=== PATIENT | female | born 1965 | race American Indian/Alaskan Native ===

== ENCOUNTER 2016-10-10 11:45 | Inpatient (IN) | payer MEDICAID, MEDICARE ==
[2016-10-10 11:46] VITALS: BMI 37.3
[2016-10-10] MEDS ORDERED: Oxycodone/Acetaminophen 5/325 mg Tab PO STA (12:19)
--- NOTE | 2016-10-10 12:25 | ED PDOC ---
Arrival/HPI - General Historian: Patient - History of Present Illness Time/Duration: > month Symptom Onset: Gradual Symptom Course: Worsening Quality: Aching Severity Level: 5 - General Chief Complaint: Lower Extremity Problem/Injury Time Seen by Provider: 10/10/16 12:12 - History of Present Illness Narrative History of Present Illness (Text): 10/10/16 12:21 51-year-old female with a history of hypertension and diabetes presents today with a one-month history of left leg swelling and pain. Patient states the swelling is unchanged but the pain has worsened. She is complaining of worsening pain in the left foot as well as the left ankle. She denies any recent trauma or injury. Pt states that back in december she stepped on a rock incorrectly and twisted the ankle. Pt states she actually has has swelling since that time but never followed up for continued pain because of insurance issues. Patient states she's been taking Motrin for pain at home without improvement. no fevers or chills. Patient denies chest pain or shortness of breath. Denies abdominal pain. The patient states she had her left great toenail fall off recently. Patient states she had a thickened discolored nail that fell off on its own without trauma. Patient states she did not take any of her medications today including her blood pressure medication. (Sonia Pacheco) Past Medical History - Provider Review Nursing Documentation Reviewed: Yes - Travel History Have you recently traveled outside [place] w/in the past 3 mons?: No - Infectious Disease Hx of Infectious Diseases: None - Tetanus Immunization Tetanus Immunization: Unknown - Cardiac Hx Cardiac Disorders: Yes Hx Hypertension: Yes - Musculoskeletal/Rheumatological Hx Arthritis: Yes - Psychiatric Hx Depression: No Hx Emotional Abuse: No Hx Physical Abuse: No Hx Substance Use: No - Past Surgical History Past Surgical History: No Previous - Suicidal Assessment Feels Threatened In Home Enviroment: No Family/Social History - Physician Review Nursing Documentation Reviewed: Yes Family/Social History: Unknown Family HX Smoking Status: Never Smoked Hx Alcohol Use: No Hx Substance Use: No Hx Substance Use Treatment: No Allergies/Home Meds Allergies/Adverse Reactions: Allergies aspirin [From Seth Aspirin] Allergy (Verified 10/10/16 11:50) VOMITING calcium carbonate [From Bufferin] Allergy (Verified 10/10/16 11:50) VOMITING magnesium [From Bufferin] Allergy (Verified 10/10/16 11:50) VOMITING naproxen [From Aleve] Allergy (Verified 10/10/16 11:50) VOMITING Home Medications: Home Meds Medication Instructions Recorded Confirmed Glimepiride [Amaryl] 4 mg PO BID 10/10/16 10/10/16 Lisinopril/Hydrochlorothiazide 1 each PO DAILY 10/10/16 10/10/16 [Lisinopril-Hctz 20-12.5 mg Tab] Review of Systems - Review of Systems Constitutional: absent: Fatigue, Fevers Respiratory: absent: SOB, Cough Cardiovascular: absent: Chest Pain, Palpitations Gastrointestinal: absent: Abdominal Pain, Diarrhea, Nausea, Vomiting Musculoskeletal: Arthralgias, Joint Swelling Skin: absent: Rash, Pruritis Neurological: absent: Headache, Dizziness Psychiatric: absent: Anxiety, Depression Physical Exam Vital Signs Reviewed: Yes Temperature: Afebrile Blood Pressure: Hypertensive Pulse: Tachycardic Respiratory Rate: Normal Appearance: Positive for: Well-Appearing, Non-Toxic, Comfortable Pain Distress: None Mental Status: Positive for: Alert and Oriented X 3 - Systems Exam Head: Present: Atraumatic Mouth: Present: Moist Mucous Membranes Respiratory/Chest: Present: Clear to Auscultation Cardiovascular: Present: Regular Rate and Rhythm Upper Extremity: Present: Normal Inspection Lower Extremity: Present: Edema (+ left lower extremity edema from the knee to the ankle. spares the foot; sensation and distal pulses intact. ), CALF TENDERNESS, NORMAL PULSES, Tenderness (+ ttp over plantar aspect of foot and ankle bilaterally. ), Swelling (left calf and ankle), Deformity (charcot foot deformity), Neurovascularly Intact, Capillary Refill < 2 s, Other (left great toe nail missing without erythema; edema, or tenderness. ). No: Normal Inspection, Normal ROM, Erythema Neurological: Present: GCS=15, Speech Normal, Motor Func Grossly Intact, Normal Sensory Function Skin: Present: Warm, Dry Psychiatric: Present: Alert, Oriented x 3 Vital Signs Temp Pulse Resp BP Pulse Ox 10/10/16 20:40 98.5 F 95 H 16 169/70 H 98 10/10/16 17:10 91 H 178/103 H 10/10/16 17:04 98.4 F 91 H 16 178/103 H 97 10/10/16 14:54 90 16 152/98 H 100 08/05/17 12:15 106 H 16 207/166 H 98 10/10/16 11:52 98.1 F 106 H 16 212/121 H 97 Medical Decision Making ED Course and Treatment: 10/10/16 12:36 I was available for consultation during PA evaluation. The chart was reviewed by me, and I agree with disposition. The documented history was done by the physician exchange mechanic. The documented physical exam was done by the physician exchange mechanic. The documented procedures were done by the physician exchange mechanic. (Ace Estrada) 10/10/16 12:28 51yr old diabetic female with hx of htn and left leg swelling since december which as been worsening over the past month. Pt unable to ambulate due to severe pain. pt hypertensive; did not take her bp medications today; will give pts medication ; lisinopril/htcz; 20/12.5 percocet given for pain fingerstick; 346 cbc wnl cmp: glucose 249 NS iv bolus given. xray left foot: ADDENDUM: Addendum: There is 10 mm of lateral subluxation of the 2nd metatarsal relative to the base of the 1st metatarsal. This is consistent with a Lisfranc type injury. This injury can be seen in association with the changes of a Charcot foot. [ Addendum Report Added by Dr. Snider, Lio ROD at 10/10/2016 15:19:47 BONES: Multiple fracture dislocations are seen at the base of the metatarsals consistent with a severe Charcot foot. There is also flattening of the plantar arch I spoke with Sonia smiley to confirm a history of diabetic neuropathy. JOINTS: Normal. SOFT TISSUES: Normal. OTHER FINDINGS: None. IMPRESSION: Charcot foot xray left ankle: no ankle fracture Venous duplex left leg; no dvt there is a question of whether this is an old lisfranc fracture or charcot foot from her diabetes. Although patient without diabetic neuropathy at this time and Due to the remote hx of possible trauma will consult podiatry. posterior short leg splint applied. case discussed with dr. key who reviewed images. ? old lisfranc vs charot. With prior hx of trauma more likely lisfranc which would need surgery. He contacting orthopedist. case discussed with dr. molina; pt to be placed in splint. case discussed with dr. barrera; she would like MRI of foot. no MRI available now. pt with difficulty ambulating with splint. continued elevated htn and glucose; will admit to med/surg for further evaluation and treatment of uncontrolled HTN/hyperglycemia and further evaluation of foot deformity. impression; charot foot vs lisfranc fx , old admit to med/surg for podiatry and orthopedic consult. (Sonia Pacheco) - Lab Interpretations Lab Results: 10/10/16 12:50 10/10/16 14:50 Lab Results 10/10/16 17:11: POC Glucose (mg/dL) 230 H 10/10/16 14:50: Triglycerides 93, Cholesterol 226 H, LDL Cholesterol Direct 168 H, HDL Cholesterol 39 10/10/16 14:50: Sodium 136, Potassium 4.1, Chloride 99, Carbon Dioxide 28, Anion Gap 13, BUN 11, Creatinine 0.6, Est GFR ( Amer) > 60, Est GFR (Non- Af Amer) > 60, Random Glucose 279 H, Calcium 9.5, Total Bilirubin 0.6, AST 25, ALT 27, Alkaline Phosphatase 108, Total Protein 7.4, Albumin 3.7, Globulin 3.7, Albumin/Globulin Ratio 1.0 L 10/10/16 12:50: WBC 5.0, RBC 4.81, Hgb 11.5 L, Hct 35.3 L, MCV 73.4 L, MCH 23.9 L, MCHC 32.6, RDW 14.8 H, Plt Count 352, MPV 11.8 H, Gran % 62.3, Lymph % (Auto ) 29.0, [place] % (Auto) 7.1 H, Eos % (Auto) 1.4 L, Baso % (Auto) 0.2, Gran # 3.09 , Lymph # 1.4, [place] # 0.4, Eos # 0.1, Baso # 0.01 10/10/16 12:11: POC Glucose (mg/dL) 346 H - RAD Interpretation Radiology Orders: 10/10/16 12:19 ANKLE LEFT 3 VIEWS ROUTINE [RAD] Stat FOOT LEFT 3 VIEWS ROUTINE [RAD] Stat DUPLEX LOWER EXTRM VEIN LEFT [US] Stat 10/10/16 16:39 ANKLE W/O CONTRAST RIGHT [MRI] Stat - Medication Orders Current Medication Orders: Amlodipine Besylate (Norvasc) 5 mg PO DAILY [facility] Last Admin: 10/11/16 06:19 Dose: 5 mg Glimepiride (Amaryl) 4 mg PO BID [facility] Hydrochlorothiazide (Microzide) 12.5 mg PO DAILY [facility] Insulin Human Lispro (Humalog Med) 0 units SC ACHS [facility] PRN Reason: Protocol Last Admin: 10/11/16 08:35 Dose: 5 units Lisinopril (Zestril) 20 mg PO DAILY [facility] Last Admin: 10/11/16 06:18 Dose: 20 mg Discontinued Medications Acetaminophen (Tylenol 325mg Tab) 650 mg PO ONCE STA Stop: 10/11/16 05:53 Last Admin: 10/11/16 06:16 Dose: 650 mg Hydrochlorothiazide (Microzide) 12.5 mg PO STAT STA Stop: 10/10/16 12:20 Last Admin: 10/10/16 12:37 Dose: 12.5 mg Hydrochlorothiazide (Microzide) 12.5 mg PO STAT STA Stop: 10/10/16 16:45 Last Admin: 10/10/16 17:10 Dose: 12.5 mg Sodium Chloride (Sodium Chloride 0.9%) 1,000 mls @ 999 mls/hr IV .Q1H1M STA Stop: 10/10/16 13:26 Last Admin: 10/10/16 13:50 Dose: 999 mls/hr Lisinopril (Zestril) 20 mg PO STAT STA Stop: 10/10/16 12:19 Last Admin: 10/10/16 12:36 Dose: 20 mg Lisinopril (Zestril) 20 mg PO STAT STA Stop: 10/10/16 16:44 Last Admin: 10/10/16 17:10 Dose: 20 mg Oxycodone/Acetaminophen (Percocet 5/325 Mg Tab) 1 tab PO STAT STA Stop: 10/10/16 12:20 Last Admin: 10/10/16 12:37 Dose: 1 tab Re-Assess: SUSAN Pain Assessment Document 10/10/16 13:37 GMI (Rec: 10/10/16 13:52 GMI [id number]) Pain Reassessment Is this a pain reassessment? Yes Sleep Is patient sleeping during reassessment? No Presence of Pain Presence of Pain Yes Pain Scale Used Pain Scale Used Numeric Location Left, Right or Bilateral Left Description Description Intermittent Intensity of Pain at present 5 Procedures - Splinting Location: left ankle/foot Hand-Made Type: fiberglass Splint: posterior short leg splint Pre-Proc Neuro Vasc Exam: normal Post-Proc Neuro Vasc Exam: normal Disposition/Present on Arrival - Present on Arrival Any Indicators Present on Arrival: No History of DVT/PE: No History of Uncontrolled Diabetes: No Urinary Catheter: No History of Decub. Ulcer: No History Surgical Site Infection Following: None - Disposition Have Diagnosis and Disposition been Completed?: Yes Disposition Time: 17:24 Patient Plan: Admission - Disposition Diagnosis: Lisfranc fracture, Leg swelling, Hypertension, Hyperglycemia Disposition: HOSPITALIZED Patient Problems: Current Active Problems Problem Status Onset Hyperglycemia Acute Hypertension Acute Leg swelling Acute Lisfranc fracture Acute Condition: FAIR
[2016-10-10] MEDS ORDERED: Sodium Chloride 0.9% 1,000 ML IV STA (12:26)
[2016-10-10 13:18] LABS: BASO # 0.01 K/mm3 (0.0-2.0); BASO % 0.2 % (0.0-3.0); EOS # 0.1 (0.0-0.7); EOS % 1.4 % (1.5-5.0); GRAN # 3.09 (1.4-6.5); GRAN % 62.3 % (50.0-68.0); HEMOGLOBIN 11.5 gm/dL (12.0-16.0); LYMPH # 1.4 (1.2-3.4); MEAN CELL VOLUME 73.4 fL (80.0-105.0); MEAN CORPUSCULAR HEMOGLOBIN 23.9 pg (25.0-35.0); MEAN CORPUSCULAR HGB CONC 32.6 g/dl (31.0-37.0); MEAN PLATELET VOLUME 11.8 fl (7.0-11.0); MONO # 0.4 (0.1-0.6); MONO % 7.1 % (1.0-6.0); PLATELET COUNT 352 10^3/uL (120.0-450.0); RBC 4.81 10^6/uL (3.5-6.1); RED CELL DISTRIBUTION WIDTH 14.8 % (11.5-14.5)
--- NOTE | 2016-10-10 13:44 | US ---
PROCEDURE: Left lower extremity venous US HISTORY: Leg pain and swelling. Evaluate for DVT. PHYSICIAN(S): Alcides Martinez MD. TECHNIQUE: Duplex sonography and color-flow Doppler with graded compression were used to evaluate the deep venous system of the left lower extremity. The exam is limited by edema FINDINGS: The visualized deep venous system of the left lower extremity is sonographically normal and compressible. Normal wave forms and augmentation are seen. There is no sonographic evidence for deep venous thrombosis in the visualized segments of the left lower extremity. IMPRESSION: 1. No sonographic evidence for deep venous thrombosis in the visualized segments of the left lower extremity.
--- NOTE | 2016-10-10 15:09 | RAD ---
PROCEDURE: Left Foot Radiographs. HISTORY: foot pain COMPARISON: None. FINDINGS: BONES: Multiple fracture dislocations are seen at the base of the metatarsals consistent with a severe Charcot foot. There is also flattening of the plantar arch I spoke with Sonia smiley to confirm a history of diabetic neuropathy. JOINTS: Normal. SOFT TISSUES: Normal. OTHER FINDINGS: None. IMPRESSION: Charcot foot
[2016-10-10 15:10] LABS: ALBUMIN 3.7 g/dL (3.0-4.8); ALT/SGPT 27 U/L (7-56); AST/SGOT 25 U/L (15-39); BLOOD UREA NITROGEN 11 mg/dL (7-21); CALCIUM 9.5 mg/dL (8.4-10.5); GFR AFRICAN-AMERICAN > 60; GFR NON-AFRICAN AMERICAN > 60
--- NOTE | 2016-10-10 15:20 | RAD ---
PROCEDURE: Left Ankle Radiographs. HISTORY: ankle pain COMPARISON: None FINDINGS: BONES: There is a severe Charcot foot. There is medial displacement of the 1st cuneiform which is also visible on the ankle films. JOINTS: Normal. No osteoarthritis. Ankle mortise maintained. Talar dome intact SOFT TISSUES: There is severe soft tissue swelling. OTHER FINDINGS: None. IMPRESSION: Severe soft tissue swelling. No evidence of ankle fracture.
[2016-10-10 17:42] LABS: HDL CHOLESTEROL 39 mg/dL (29-60)
[2016-10-10 17:53] LABS: LDL CHOLESTEROL 168 mg/dL (0-129)
[2016-10-10] MEDS: Insulin Lispro (humaLOG) MEDIUM Coverage SC SCH (22:00)
--- NOTE | 2016-10-10 23:48 | HP ---
HISTORY OF PRESENT ILLNESS: The patient is a 51-year-old who came to the emergency room because of increasing right ankle pain and swelling. The stated she noticed her left leg swelling that has been increasingly getting worse and got severe today, so she came to the emergency room for further evaluation, also complain of pain and swelling in the left foot. Denies any recent injury. No recent trauma. The patient does admit that back in January 2016, she stepped wrong on the rock and strained her ligament and at that point, she was seen in the office with complaint of leg swelling, so leg Doppler was done, it was negative for DVT. The patient stated after that her swelling started to improve and she will get intermittent pain, but not to the point that she had to seek medical attention. The patient was last seen in office in January 2016. PAST MEDICAL HISTORY: She has significant past medical history of; 1. Hypertension. 2. Non-insulin dependent diabetes. 3. Morbid obesity. The patient is not very compliant. She has not been in office for last 9 months. ALLERGIES: SHE IS ALLERGIC TO ASPIRIN, CALCIUM CARBONATE, MAGNESIUM AND NAPROSYN. MEDICATION AT HOME: She is supposed to take lisinopril 20/12.5 daily and glimepiride 4 mg twice a day, but she takes that medicine intermittently. SOCIAL HISTORY: Denies smoking, drinking or alcohol use. REVIEW OF SYSTEMS: Significant for left ankle and foot swelling. PHYSICAL EXAMINATION GENERAL: She is awake and alert, communicative. VITAL SIGNS: She is afebrile. Pulse 106. Upon arrival, her blood pressure was 212/121, respirations 16. She was given lisinopril and later her blood pressure was 152/98. LUNGS: Bilateral good air flow. No rhonchi or crackle. HEART: S1 and S2 audible. ABDOMEN: Soft, obese, nontender. No rebound, no guarding. NEUROLOGIC: She is awake and alert, able to communicate. She has left ankle swelling along with left foot swelling, +2 edema. LABORATORY DATA: WBC 5.0, hemoglobin 11.5,hematocrit 35.3, platelet of 352. Chemistries; sodium 36, potassium 4.1, chloride 99, CO2 of 28, BUN 11, creatinine 0.6, blood sugar of 346. LFTs are within normal limits. She had ankle x-ray done, left ankle shows rare soft tissue swelling. No evidence of ankle fracture. Medial displacement of first cuneiform which is also visible on the ankle film along with severe soft tissue swelling. Leg Doppler negative for DVT. Left foot x-ray, there is 10 mm lateral subluxation of the second metatarsal relative to the base of the first metatarsal consistent with Lisfranc type injury. ASSESSMENT: 1. Left ankle swelling. X-ray showing medial displacement of first cuneiform visible on ankle film. 2. Uncontrolled hypertension. 3. Uncontrolled diabetes. 4. Noncompliance. PLAN: We will get MRI, get orthopedic and podiatry consult. I will monitor blood sugar and start her on her usual blood pressure medication and once MRI result is available, she might need surgery depending on MRI result. Planning to going for surgery, she is going to need cardiology evaluation since her blood pressure and blood sugars has been uncontrolled. Her cardiac status has to be evaluated and request for cardiology evaluation also. Luisa Mclean MD
[2016-10-11 08:16] LABS: ALBUMIN 3.5 g/dL (3.0-4.8); ALT/SGPT 26 U/L (7-56); AST/SGOT 23 U/L (15-39); BLOOD UREA NITROGEN 7 mg/dL (7-21); CALCIUM 9.6 mg/dL (8.4-10.5); GFR AFRICAN-AMERICAN > 60; GFR NON-AFRICAN AMERICAN > 60; MAGNESIUM 1.2 mg/dL (1.7-2.2)
[2016-10-11 08:21] LABS: FREE T4 1.51 ng/dL (0.78-2.19)
[2016-10-11] MEDS: Insulin Lispro (humaLOG) MEDIUM Coverage SC SCH ×4 (08:35→22:10)
--- NOTE | 2016-10-11 11:01 | MRI ---
PROCEDURE: MRI of the right ankle without contrast HISTORY: pain/swelling COMPARISON: Plain films 10/10/2016 TECHNIQUE: MRI of the right ankle was performed in multiple planes using multiple pulse sequences. FINDINGS: There is a large amount of subcutaneous edema surrounding the ankle and extending over the dorsum of the foot. This could be secondary to passive edema or cellulitis. There is a severe Charcot deformity of the midfoot. There is medial displacement of the 1st cuneiform. There is 10 mm of lateral displacement of the 2nd metatarsal relative to the 1st metatarsal consistent with a Lisfranc type injury. This is frequently seen in association with a Charcot foot. Degenerative changes are seen at the base of each metatarsal. There is diffuse mild marrow edema. IMPRESSION: Severe subcutaneous edema which may be passive edema or cellulitis. Multiple midfoot dislocations at the base of the metatarsals consistent with a Charcot foot.
--- NOTE | 2016-10-11 11:56 | CP.PCM.PN ---
Subjective - Date & Time of Evaluation Date of Evaluation: 10/11/16 Time of Evaluation: 05:30 - Subjective Subjective: Patient was seen at bedside. Because nurse Radha told that her BP was 170/11.She received Zestril 20 mg po and norvasc 5 mg po in the ER. She has also little headache. Denies dizziness, heaviness in head , chest pain, sob. Hydralazine 10 mg is due after 2 hours. ROS: Negative except as mentioned above. Medical record was reviewed. This 51 year old woman came to the ER because she had increasing pain and swelling in right ankle. Has PMH of HTN,NIDDM,morbid obesity. Objective - Vital Signs/Intake and Output Vital Signs (last 24 hours): Temp Pulse Resp BP Pulse Ox 98.1 F 106 H 20 175/105 H 98 10/11/16 08:01 10/11/16 10:25 10/11/16 08:01 10/11/16 10:25 10/11/16 08:01 Intake and Output: 10/11/16 10/11/16 06:59 18:59 Intake Total 0 Balance 0 - Medications Medications: Current Medications Amlodipine Besylate (Norvasc) 5 mg PO DAILY [facility] Last Admin: 10/11/16 10:21 Dose: Not Given Glimepiride (Amaryl) 4 mg PO BID [facility] Last Admin: 10/11/16 10:23 Dose: 4 mg Hydrochlorothiazide (Microzide) 12.5 mg PO DAILY [facility] Last Admin: 10/11/16 10:23 Dose: 12.5 mg Insulin Human Lispro (Humalog Med) 0 units SC [facility] PRN Reason: Protocol Last Admin: 10/11/16 08:35 Dose: 5 units Lisinopril (Zestril) 20 mg PO DAILY [facility] Last Admin: 10/11/16 10:22 Dose: Not Given - Labs Labs: 10/11/16 07:00 Most Recent Lab Values WBC 5.0 10^3/ul (4.5-11.0) 10/10/16 12:50 RBC 4.81 10^6/uL (3.5-6.1) 10/10/16 12:50 Hgb 11.5 gm/dL (12.0-16.0) L 10/10/16 12:50 Hct 35.3 % (36.0-48.0) L 10/10/16 12:50 MCV 73.4 fL (80.0-105.0) L 10/10/16 12:50 MCH 23.9 pg (25.0-35.0) L 10/10/16 12:50 MCHC 32.6 g/dl (31.0-37.0) 10/10/16 12:50 RDW 14.8 % (11.5-14.5) H 10/10/16 12:50 Plt Count 352 10^3/uL (120.0-450.0) 10/10/16 12:50 MPV 11.8 fl (7.0-11.0) H 10/10/16 12:50 Gran % 62.3 % (50.0-68.0) 10/10/16 12:50 Lymph % (Auto) 29.0 % (22.0-35.0) 10/10/16 12:50 [place] % (Auto) 7.1 % (1.0-6.0) H 10/10/16 12:50 Eos % (Auto) 1.4 % (1.5-5.0) L 10/10/16 12:50 Baso % (Auto) 0.2 % (0.0-3.0) 10/10/16 12:50 Gran # 3.09 (1.4-6.5) 10/10/16 12:50 Lymph # 1.4 (1.2-3.4) 10/10/16 12:50 [place] # 0.4 (0.1-0.6) 10/10/16 12:50 Eos # 0.1 (0.0-0.7) 10/10/16 12:50 Baso # 0.01 K/mm3 (0.0-2.0) 10/10/16 12:50 Sodium 133 mmol/L (132-148) 10/11/16 07:00 Potassium 3.7 mmol/L (3.6-5.0) 10/11/16 07:00 Chloride 97 mmol/L (98-107) L 10/11/16 07:00 Carbon Dioxide 28 mmol/L (21-33) 10/11/16 07:00 Anion Gap 12 (10-20) 10/11/16 07:00 BUN 7 mg/dL (7-21) 10/11/16 07:00 Creatinine 0.5 mg/dL (0.5-1.4) 10/11/16 07:00 Est GFR ( Amer) > 60 10/11/16 07:00 Est GFR (Non-Af Amer) > 60 10/11/16 07:00 POC Glucose (mg/dL) 273 mg/dL (65-110) H 10/11/16 21:05 Random Glucose 244 mg/dL (70-110) H 10/11/16 07:00 Calcium 9.6 mg/dL (8.4-10.5) 10/11/16 07:00 Magnesium 1.2 mg/dL (1.7-2.2) L 10/11/16 07:00 Total Bilirubin 0.9 mg/dL (0.2-1.3) 10/11/16 07:00 AST 23 U/L (15-39) 10/11/16 07:00 ALT 26 U/L (7-56) 10/11/16 07:00 Alkaline Phosphatase 97 U/L (38-133) 10/11/16 07:00 Total Protein 7.0 g/dL (5.8-8.3) 10/11/16 07:00 Albumin 3.5 g/dL (3.0-4.8) 10/11/16 07:00 Globulin 3.5 gm/dL 10/11/16 07:00 Albumin/Globulin Ratio 1.0 (1.1-1.8) L 10/11/16 07:00 Triglycerides 93 mg/dL (35-160) 10/10/16 14:50 Cholesterol 226 mg/dL (130-200) H 10/10/16 14:50 LDL Cholesterol Direct 168 mg/dL (0-129) H 10/10/16 14:50 HDL Cholesterol 39 mg/dL (29-60) 10/10/16 14:50 Free T4 1.51 ng/dL (0.78-2.19) 10/11/16 07:00 TSH 3rd Generation 2.37 mIU/mL (0.46-4.68) 10/11/16 07:00 - Constitutional Appears: Well, No Acute Distress - Head Exam Head Exam: ATRAUMATIC, NORMAL INSPECTION, NORMOCEPHALIC - Eye Exam Eye Exam: Normal appearance - ENT Exam ENT Exam: Normal External Ear Exam - Neck Exam Neck Exam: Normal Inspection - Respiratory Exam Respiratory Exam: Rales - Cardiovascular Exam Cardiovascular Exam: absent: JVD - GI/Abdominal Exam GI & Abdominal Exam: absent: Distended - Rectal Exam Rectal Exam: Deferred - Exam Additional comments: Deferred. - Extremities Exam Extremities Exam: Normal Inspection - Back Exam Back Exam: NORMAL INSPECTION - Neurological Exam Neurological Exam: Alert, Awake - Psychiatric Exam Psychiatric exam: Normal Affect, Normal Mood - Skin Skin Exam: Normal Color Assessment and Plan - Assessment and Plan (Free Text) Assessment: Elevated blood pressure reading. Headache. HTN. NIDDM. Morbid obesity. Plan: Tylenol 650 mg PO stat. Zestril 20 mg po stat.-given. Norvasc 5 mg po stat-given. Continue present management.
[2016-10-11] MEDS: Enoxaparin 40 mg Syringe SC SCH ×2 (17:01→17:05)
--- NOTE | 2016-10-12 02:42 | CON ---
CARDIOLOGY CONSULT REASON FOR CONSULTATION: Hypertension, diabetes mellitus as well as preoperative evaluation. HISTORY OF PRESENT ILLNESS: The patient is a 51-year-old -[place] female, who has a history of hypertension and diabetes mellitus, sustained twisted right leg ligaments last year according to the patient, but was able to recover. However, lately, she noticed right ankle pain and significant leg swelling. The patient was evaluated for an outpatient DVT that was negative. The patient was admitted and had a cast applied to her right leg. The patient denied any chest pain and is unaware of any prior cardiac history. SOCIAL HISTORY: The patient is a nonsmoker. MEDICATIONS: Amaryl 4 mg p.o. twice a day, hydralazine 10 mg q.i.d., hydrochlorothiazide 12.5 mg once a day, Norvasc 5 mg once a day, and Zestril 20 mg once a day. REVIEW OF SYSTEMS: No fever or chills. No vomiting or diarrhea. PHYSICAL EXAMINATION GENERAL: The patient is a middle-aged female who does not appear to be in acute distress. VITAL SIGNS: Blood pressure 159/76, heart rate 72, temperature 98.6 and respirations 20. HEENT: Normocephalic. CHEST: Clear. HEART: S1, S2 regular. EXTREMITIES: A cast is applied to the right leg and foot. LABORATORY DATA: Hemoglobin and hematocrit 11.5 and 35.3. White count and platelet count are within normal limits. SMA-7 is within normal limits except for glucose and chloride of 97. TSH level and free T4 are within normal limits. EKG based on a second cardiac rate of 103 and few Q waves were noted. Ankle MRI revealed severe subcutaneous edema, which maybe passive edema or cellulitis, multiple midfoot dislocations at the base of the metatarsals. Lower extremity edema performed yesterday revealed no sonographic evidence of DVT. ASSESSMENT: 1. Multiple dislocations at the base of the metatarsals of the right foot. 2. Rule out right foot cellulitis. 3. Hypertension. 4. Diabetes mellitus. 5. Mild anemia. RECOMMENDATIONS: Continue hydralazine at 10 mg q.i.d., hydrochlorothiazide 12.5 mg daily, Zestril 20 mg once a day, and discontinue Norvasc. Obtain an echocardiogram. Start subcutaneous Lovenox at 40 mg once a day. Daniel Crum MD [facility] # [id number]
[2016-10-12] MEDS: Insulin Lispro (humaLOG) MEDIUM Coverage SC SCH ×3 (07:56→16:59)
[2016-10-12 08:12] VITALS: PULSE 92
--- NOTE | 2016-10-12 09:31 | CARD ---
APPROVED REPORT EKG Measurement Heart [id number] <Conclusion> Sinus tachycardia Minimal voltage criteria for LVH, may be normal variant Q in 3
[2016-10-12] MEDS: Enoxaparin 40 mg Syringe SC SCH (11:17)
[2016-10-12] MEDS ORDERED: Vancomycin 1gm in NS 250ml 1 GM/250 ML BAG IVPB SCH (12:45)
--- NOTE | 2016-10-12 14:25 | CP.PCM.CON ---
History of Present Illness - History of Present Illness History of Present Illness: 51-year-old female with PMH of hypertension and uncontrolled diabetes, seen at [facility] concerning left foot and ankle pain and swelling. Pt reports that over the past month she has experienced increased symptoms of left foot and ankle pain. She reports no acute traumatic injury to the affected area at the onset of the symptoms but does reveal in January of 2016 she suffered a traumatic ankle sprain that she did not seek treatment for. Patient states the swelling is unchanged but the pain has worsened. Patient states she's been taking Motrin for pain at home without improvement Pt denies recent f/c/cp/sob/n/v/d. other pedal complaint is that her left hallux had fallen off recently absent a traumatic event. Outside this no other pedal complaints. Past Patient History - Infectious Disease Hx of Infectious Diseases: None - Tetanus Immunizations Tetanus Immunization: Unknown - Past Social History Smoking Status: Never Smoked - CARDIAC Hx Cardiac Disorders: Yes Hx Hypertension: Yes - ENDOCRINE/METABOLIC Hx Diabetes Mellitus Type 2: Yes - MUSCULOSKELETAL/RHEUMATOLOGICAL Hx Arthritis: Yes - PSYCHIATRIC Hx Depression: No Hx Emotional Abuse: No Hx Physical Abuse: No Hx Substance Use: No Meds Allergies/Adverse Reactions: Allergies Allergy/AdvReac Type Severity Reaction Status Date / Time aspirin [From Seth Aspirin] Allergy VOMITING Verified 10/10/16 11:50 calcium carbonate Allergy VOMITING Verified 10/10/16 11:50 [From Bufferin] magnesium [From Bufferin] Allergy VOMITING Verified 10/10/16 11:50 naproxen [From Aleve] Allergy VOMITING Verified 10/10/16 11:50 - Medications Medications: Current Medications Enoxaparin Sodium (Lovenox) 40 mg SC DAILY PETER PRN Reason: Protocol Last Admin: 10/12/16 11:17 Dose: Not Given Glimepiride (Amaryl) 4 mg PO BID [facility] Last Admin: 10/12/16 11:14 Dose: 4 mg Hydralazine HCl (Apresoline) 10 mg PO QID PRN PRN Reason: Systolic Blood Pressure Last Admin: 10/11/16 13:31 Dose: 10 mg Hydrochlorothiazide (Microzide) 12.5 mg PO DAILY [facility] Last Admin: 10/12/16 11:14 Dose: 12.5 mg Vancomycin HCl (Vancomycin 1gm) 1 gm in 250 mls @ 167 mls/hr IVPB Q12H PETER PRN Reason: Protocol Insulin Human Lispro (Humalog Med) 0 units SC ACHS PETER PRN Reason: Protocol Last Admin: 10/12/16 11:53 Dose: 7 units Lisinopril (Zestril) 40 mg PO DAILY [facility] Sitagliptin Phosphate (Januvia) 100 mg PO DAILY [facility] Physical Exam - Constitutional Appears: Well, Non-toxic, No Acute Distress - Extremities Exam Additional comments: Left lower extremity focused. Removed left LE posterior splint. NEURO: 1/4 pedal pulses noted. +2 pitting edema to left lower extremity, +1 pitting edema to right lower extremity. Temperature runs from warm to cool within normal limits to left lower extremity, mildy greater than contra lateral limb. NEURO: Protective sensation grossly dismissed. Tactile tomba-qi-lntf sensation absent to midfoot and forefoot. Position sensation grossly intact for left lower extremity. MUSK: Left medial arch collapse noted with, plantar medial jessie prominence noted. Medial ankle joint edema. Pain on palpation for midtarsal and lisfranc joint on stress ROM. - Neurological Exam Neurological exam: Alert, Oriented x3 - Psychiatric Exam Psychiatric exam: Normal Affect, Normal Mood Results - Vital Signs Recent Vital Signs: Last Vital Signs Temp 98.0 F 10/12/16 08:11 Pulse 92 H 10/12/16 11:14 Resp 18 10/12/16 08:11 BP 162/101 H 10/12/16 11:14 Pulse Ox 99 10/12/16 08:11 - Labs Result Diagrams: 10/10/16 12:50 10/11/16 07:00 Labs: Laboratory Results - last 24 hr 10/11/16 10/11/16 10/11/16 07:00 15:55 21:05 POC Glucose (mg/dL) 174 H 273 H Hemoglobin A1c 13.9 H 10/12/16 10/12/16 07:24 11:50 POC Glucose (mg/dL) 229 H 307 H Hemoglobin A1c Assessment & Plan - Assessment and Plan (Free Text) Assessment: 54 year of diabetic female with 1) Lisfranc rupture/ disocation, 2) Charcot arthropathy; midfoot-forefoot. Plan: Lisa nd evaluated with attending, Dr. Silva. Chart, labs and vitals reviewed. -Left lower extremity radiographs and MRIs reviewed, results show Lisfranc joint dislocation with involvement of mutiple metatarsal bases, 8.8 mm distasis of medial cuneiform to 2nd metatarsal. Increased talar declination angle. Severe mid-foot collapse. -Placed pt in fiberglass cast to left lower extremity. To be partial weightbearing to heel w/ crutches. Referred to Dr. Gupta in [facility] for potential left foot reconstuction surgical evaluation. Pt stable from podiatry for discharge. - Date & Time Date: 10/12/16 Time: 14:05
[2016-10-12 17:17] VITALS: BP 162/92; RESP 20; TEMP 98.1; O2SAT 95
--- NOTE | 2016-10-12 19:50 | CARD ---
APPROVED REPORT EXAM: Two-dimensional and M-mode echocardiogram with Doppler and color Doppler. INDICATION Dizziness and Vertigo 2D DIMENSIONS Left Atrium (2D)5.2 (1.6-4.0cm)IVSd1.4 (0.7-1.1cm) LVDd4.7 (3.9-5.9cm)PWd1.4 (0.7-1.1cm) LVDs3.4 (2.5-4.0cm)FS (%) 27.9 % LVEF (%)50.0 (>50%) M-Mode DIMENSIONS Aortic Root3.10 (2.2-3.7cm)Aortic Cusp Exc.1.80 (1.5-2.0cm) Aortic Valve AoV Peak Bjamrpwh429.0cm/sAoV VTI34.4cmAO Peak GR.11mmHg LVOT Peak Nuoukbmc92.7cm/sLVOT VTI19.70cmAO Mean GR.7mmHg Mitral Valve MV E Rfxfjdcz609.0cm/sMV A Ebtpcihu386.0cm/sE/A ratio0.9 TDI Lateral E' Peak V10.00cm/sMedial E' Peak V8.48cm/sE/Lateral E'10.2 E/Medial E'12.0 Pulmonary Valve PV Peak Ugndbxft52.0cm/sPV Peak Grad.3mmHg Tricuspid Valve TR Peak Youqpkio047ft/sRAP [id number] Peak Gr.25mmHg [id number] LEFT VENTRICLE The left ventricle is normal size. There is mild concentric left ventricular hypertrophy. Left ventricle systolic function is borderline. Transmitral Doppler flow pattern is Grade I-abnormal relaxation pattern. RIGHT VENTRICLE The right ventricle is normal size. There is normal right ventricular wall thickness. The right ventricular systolic function is normal. ATRIA The left atrium is moderately dilated. The right atrium is mildly dilated. AORTIC VALVE The aortic valve is not well visualized. MITRAL VALVE The mitral valve is mildly thickened. Mitral regurgitation is moderate. TRICUSPID VALVE There is mild pulmonary hypertension. GREAT VESSELS The aortic root is normal in size. The IVC was not visualized. <Conclusion> The left ventricle is normal size. There is mild concentric left ventricular hypertrophy. Left ventricle systolic function is borderline. Transmitral Doppler flow pattern is Grade I-abnormal relaxation pattern. Mitral regurgitation is moderate. There is mild pulmonary hypertension.
--- NOTE | 2016-10-12 20:27 | PN ---
REASON FOR CONSULTATION: Followup cardiac evaluation, possible preop evaluation, diabetes, hypertension. SUBJECTIVE: The patient denies any chest pain, shortness of breath, any palpitation, lying flat on the bed. OBJECTIVE: GENERAL: Left leg is in soft cast and is bandaged, but not in apparent distress. VITAL SIGNS: Temperature afebrile, heart rate 90, blood pressure 162/101. HEENT: PERRLA. Extraocular muscles intact. NECK: Supple. No carotid bruit. No thyromegaly. CHEST: Clear to auscultation. HEART: S1 and S2 regular. ABDOMEN: Soft. EXTREMITIES: Clubbing and cyanosis negative. LABORATORY DATA: Blood workup as follows: WBC 5, hemoglobin 11.5, hematocrit 35.3, platelet count 352. Chemistry shows sodium 137, potassium 3.7, chloride 97, carbon dioxide 28, anion gap of 12, BUN 7, creatinine 0.5. TSH 2.37, total cholesterol 226, LDL 168, HDL 39, triglyceride 93. IMPRESSION AND PLAN: This is a 51-year-old female with past medical history of hypertension, diabetes, hyperlipidemia, multiple dislocations at the base of the metatarsals of the right foot, and cellulitis, may require surgical intervention. No evidence of acute coronary syndrome, no evidence of ischemia, no evidence of congestive heart failure. The patient is cleared from Cardiology point of view to go, if needed we will clear from that point of view, and we will get echo to assess left ventricular function. Further recommendation as per hospital course but no absolute contraindication for surgery. Tammy Gibbons MD
--- NOTE | 2016-10-13 01:26 | PN ---
HISTORY OF PRESENT ILLNESS: The patient is a [id number], who mis-stepped back in January and was seen in office in January. At that point, she complained of some foot discomfort with leg swelling, had leg DVT study done, which was negative for DVT. She was given antiinflammatory. She was advised to follow up in a week if she did not improve; however, she states that her pain got better, but she never followed in office either. The patient states she lost her insurance and was unable to follow with any doctor. She has been calling different orthopedics or foot doctor, but did not get appointment; however, since September her ankle swelling got worse and 2 days prior coming to ER, her pain and swelling got worse. She came to emergency room for evaluation. She is also very noncompliant with her diabetes and her blood pressure medication. She admits not taking them regularly and she never followed with any doctor either. PHYSICAL EXAMINATION: GENERAL: Today, she is awake,alert, oriented and communicative. VITAL SIGNS: She is afebrile, pulse 92, respirations 18, blood pressure 162/101. LUNGS: Bilateral fair air flow. No rhonchi or crackle. HEART: S1 and S2, audible. ABDOMEN: Soft and nontender. No rebound and no guarding. NEUROLOGIC: She is awake and alert. Communicative. Left ankle is in soft cast. LABORATORY DATA: Blood sugar of 307. MRI of left ankle shows severe subcutaneous edema, passive edema or cellulitis, multiple midfoot dislocations at the base of the metatarsals consistent with Charcot foot. ASSESSMENT AND PLAN: 1. Left foot Charcot disease with left leg cellulitis. 2. Uncontrolled hypertension. 3. Uncontrolled diabetes. PLAN: The patient has been started on vancomycin. I will adjust her diabetes medicine. Add Januvia. The patient states she cannot tolerate metformin. Discussed with . She is trying to make arrangement with the tack picker in [place] for reconstruction surgery. She is going to require reconstruction surgery and we do not have appropriate surgeon available in this hospital. Continue her on DVT prophylaxis. I will increase her Lisinopril to 40 daily. Once she had cast placed by , we will make discharge plan. Luisa Mclean MD [facility] # [id number] ABY
--- NOTE | 2016-10-13 18:11 | PN ---
DATE: 10/11/2016 HISTORY OF PRESENT ILLNESS: The patient is a 51-year-old female admitted to the hospital with increasing right ankle pain and swelling. She was found to be hypertensive, Doppler was negative for DVT. She has history of diverticulitis type 2 and morbid obesity. CBC also showed microcytosis and anemia with low MCV. Currently, denies any ankle pain, still has high blood pressure. Hydralazine was started. PAST MEDICAL HISTORY: Hypertension, known insulin-dependent diabetes mellitus, morbid obesity. ALLERGIES: ASPIRIN, CALCIUM, MAGNESIUM, NAPROSYN. MEDICATIONS: Reviewed. PERSONAL HISTORY: Denies any smoking. No history of alcohol abuse. REVIEW OF SYSTEMS: As per HPI. Rest of 12-point review of systems reviewed and negative. PHYSICAL EXAMINATION GENERAL: Comfortable in bed, in no acute distress. VITAL SIGNS: Afebrile, temperature 98.7, heart rate is 100 per minute, blood pressure 180/90. NECK: No lymphadenopathy. CHEST: Air entry present and equal bilateral, no added sounds. CARDIOVASCULAR: S1, S2 normal. No murmur, no gallop. ABDOMEN: Soft, nontender. No hepatosplenomegaly. EXTREMITIES: No edema. CARBIDE TOOL MAKER: Alert and oriented x3. No focal, sensory or motor deficit SPINE: Nontender. LABORATORY DATA: White count 5, hemoglobin 11.5, hematocrit 35.3, MCV 73, platelet count 352. Sodium 133, potassium 3.7, magnesium 1.2, bilirubin 0.9. MEDICATIONS: Lovenox 40 mg subQ daily, Amaryl 4 mg p.o. b.i.d., hydralazine 10 mg q.i.d. as needed, hydrochlorothiazide 12.5 mg daily, Januvia 100 mg daily, vancomycin. ASSESSMENT AND PLAN: 1. Right ankle cellulitis, improving. 2. Continue IV vancomycin. 3. Hypertension, uncontrolled, hydralazine 10 mg oral q.i.d. started. Ankle MRI is pending to rule out osteomyelitis. CBC showed microcytosis with MCV of 7.3, mild anemia 11.5. She might have thalassemia trait or iron deficiency. Needs further evaluation. Michelle Rivera MD [facility] # [id number]
--- NOTE | 2016-10-14 10:47 | DS ---
HISTORY OF PRESENT ILLNESS: The patient is 51-year-old, who tripped and twisted her left ankle in October, she was seen only in office at that point. Since she complained of leg swelling, her leg Doppler was negative. She was given antiinflammatory, but she never followed out after that. The patient states she did not have much pain, but since early September, she started to have increasing swelling and pain. She was trying to find different doctor, orthopedic but never got hold because of her insurance reason but prior to coming to this [facility], her pain got worse, so she came to the ER and had x-ray done that shows soft tissue edema followed by MRI done that showed the patient has multiple mid foot dislocation at the base of metatarsal consistent with Charcot foot with severe subcutaneous edema and cellulitis, so the patient was evaluated by Dr. Silva, and the patient was referred to supervisor hand workers has been named Dr. Gupta, [facility] and the patient will follow up when she is going to need major reconstruction surgery. It was explained to patient in length that planned though the patient has been very noncompliant with her blood pressure medication and diabetes medication. She was given prescription of lisinopril 40 mg daily, Amaryl 4 mg twice a day. She had hard cast placed and discharged home to follow with Dr. Gupta. Luisa Mclean MD
== END 2016-10-12 19:04 | disposition home or self-care (01) | DRG 244 ==
LOC: ED 11:45 → ERH 18:42 → 5RSO 21:03
PROVIDERS: ADMIT Internal Medicine; ATTEND Internal Medicine
DX: M14.672 Charcot's joint, left ankle and foot (principal); L03.116 Cellulitis of left lower limb; E11.610 Type 2 diabetes mellitus with diabetic neuropathic arthropathy; E11.65 Type 2 diabetes mellitus with hyperglycemia; L03.115 Cellulitis of right lower limb; E66.01 Morbid (severe) obesity due to excess calories; I10 Essential (primary) hypertension; S93.33 Other subluxation and dislocation of foot; D64.9 Anemia, unspecified; E78.5 Hyperlipidemia, unspecified; Z79.4 Long term (current) use of insulin; Z79.84 Long term (current) use of oral hypoglycemic drugs; Z79.899 Other long term (current) drug therapy; Z91.14 Patient's other noncompliance with medication regimen; Z91.19 Patient's noncompliance with other medical treatment and regimen; Z68.35 Body mass index [BMI] 35.0-35.9, adult; Z87.19 Personal history of other diseases of the digestive system; D50.9 Iron deficiency anemia, unspecified; M19.90 Unspecified osteoarthritis, unspecified site

== ENCOUNTER 2018-04-29 11:27 | Outpatient (CLI) | payer MEDICAID | END 2018-04-29 11:28 | disposition home or self-care (01) | LOC: LAB 11:27 ==